=== PATIENT | female | born 1950 | race Caucasian/White ===

== ENCOUNTER → 2019-01-01 | Outpatient (REF) | payer MEDICARE, OTHER ==
[~2019-01-01] MED LIST: ALENDRONATE70 MG PO; CEPHALEXIN500 M1 PO; CHILD ASA81 MG PO; INSULIN PUMP; MOVE FREE JOINT1 TAB PO; SINGULAIR10 MG PO; TIMOLOL 0.5%5 ML OU
[2019-01-01 08:37] LABS: HEMOGLOBIN 9.1 g/dl (12.0-16.0); IMMATURE GRANULOCYTES 0.3 % (0.0-5.0); MEAN CELL VOLUME 93.5 fL CALC (80.0-100.0); MEAN CORPUSCULAR HGB 29.4 pG CALC (26.0-32.0); MEAN CORPUSCULAR HGB CONC 31.4 g/L CALC (32.0-36.0); NEUT# 3.8 thou/uL (2.00-7.15); RED BLOOD COUNT 3.1 mill/uL (4.20-5.60); RED CELL DISTRI WIDTH 12.8 % (11.5-15.5)
[2019-01-01 11:24] LABS: ALBUMIN 3.7 g/dL (3.2-5.0); BILIRUBIN, TOTAL 0.6 mg/dL (0.0-1.4); CHOLESTEROL HDL RATIO 2.5 (<4.4 (CALC)); CREATININE 1.1 mg/dL (0.5-1.0); POTASSIUM 4.7 mmol/l (3.5-5.1); TOTAL PROTEIN 6.5 g/dL (6.3-8.2)
[2019-01-01 11:59] LABS: TSH, 3RD GENERATION 2.35 uIU/mL (0.47 - 4.68)
== END | disposition home or self-care (01) ==
LOC: LAB 07:32
PROVIDERS: ATTEND Internal Medicine
DX: E10.641 Type 1 diabetes mellitus with hypoglycemia with coma (principal); M79.672 Pain in left foot; S92.322D Displaced fracture of second metatarsal bone, left foot, subsequent encounter for fracture with routine healing; S92.332D Displaced fracture of third metatarsal bone, left foot, subsequent encounter for fracture with routine healing

== ENCOUNTER → 2019-01-16 | Outpatient (REF) | payer MEDICARE, OTHER | END | disposition home or self-care (01) | LOC: DI 09:21 | PROVIDERS: ATTEND Podiatrist Foot & Ankle Surgery | DX: M14.671 Charcot's joint, right ankle and foot (principal); S92.322D Displaced fracture of second metatarsal bone, left foot, subsequent encounter for fracture with routine healing; S92.332D Displaced fracture of third metatarsal bone, left foot, subsequent encounter for fracture with routine healing; S92.342D Displaced fracture of fourth metatarsal bone, left foot, subsequent encounter for fracture with routine healing ==

== ENCOUNTER 2019-03-10 19:23 | Emergency (ER) | payer MEDICARE, OTHER ==
[~2019-03-10] VITALS: Ht 162.6 cm; Wt 61.4 kg
[2019-03-10 20:41] LABS: HEMATOCRIT 29.4 % (37.0-47.0); HEMOGLOBIN 9.3 g/dl (12.0-16.0); IMMATURE GRANULOCYTES 0.8 % (0.0-5.0); MEAN CELL VOLUME 90.2 fL CALC (80.0-100.0); MEAN CORPUSCULAR HGB 28.5 pG CALC (26.0-32.0); MEAN CORPUSCULAR HGB CONC 31.6 g/L CALC (32.0-36.0); NEUT# 8.57 thou/uL (2.00-7.15); RED BLOOD COUNT 3.26 mill/uL (4.20-5.60); RED CELL DISTRI WIDTH 14.1 % (11.5-15.5)
[2019-03-10] MEDS ORDERED: LISINOPRIL2.5 MG PO (20:44)
[2019-03-10] MEDS ORDERED: LEVOCETIRIZINE D5 MG PO (20:45)
[2019-03-10] MEDS ORDERED: HUMALOG100 MG/ML SC (20:47)
[2019-03-10 20:57] LABS: ALBUMIN 4.2 g/dL (3.2-5.0); BILIRUBIN, TOTAL 0.3 mg/dL (0.0-1.4); CREATININE 1.2 mg/dL (0.5-1.0); POTASSIUM 4.7 mmol/l (3.5-5.1)
[2019-03-10 22:45] VITALS: BP 146/68
== END 2019-03-10 22:45 | disposition home or self-care (01) ==
LOC: ED 19:23
DX: E11.649 Type 2 diabetes mellitus with hypoglycemia without coma (principal); E86.0 Dehydration; Z79.4 Long term (current) use of insulin; Z96.41 Presence of insulin pump (external) (internal)

== ENCOUNTER 2019-07-31 02:41 | Emergency (ER) | payer MEDICARE, OTHER ==
[~2019-07-31] VITALS: Ht 162.6 cm; Wt 63.6 kg
[~2019-07-31 02:41] MED LIST changes: +HUMALOG100 MG/ML SC; +LEVOCETIRIZINE D5 MG PO; +LISINOPRIL2.5 MG PO
[2019-07-31 03:30] LABS: HEMATOCRIT 30.5 % (37.0-47.0); HEMOGLOBIN 9.8 g/dl (12.0-16.0); IMMATURE GRANULOCYTES 0.4 % (0.0-5.0); MEAN CELL VOLUME 91.6 fL CALC (80.0-100.0); MEAN CORPUSCULAR HGB 29.4 pG CALC (26.0-32.0); MEAN CORPUSCULAR HGB CONC 32.1 g/L CALC (32.0-36.0); NEUT# 7.47 thou/uL (2.00-7.15); RED BLOOD COUNT 3.33 mill/uL (4.20-5.60); RED CELL DISTRI WIDTH 12.2 % (11.5-15.5)
[2019-07-31 03:40] LABS: ALBUMIN 4.2 g/dL (3.2-5.0); BILIRUBIN, TOTAL 0.4 mg/dL (0.0-1.4); CREATININE 1.4 mg/dL (0.5-1.0); POTASSIUM 4.5 mmol/l (3.5-5.1); TOTAL PROTEIN 7.6 g/dL (6.3-8.2)
[2019-07-31 05:30] VITALS: BP 150/69
== END 2019-07-31 05:41 | disposition home or self-care (01) ==
LOC: ED 02:41
PROVIDERS: Emergency Medicine
DX: E11.649 Type 2 diabetes mellitus with hypoglycemia without coma (principal); Z79.4 Long term (current) use of insulin

== ENCOUNTER 2020-02-11 | Emergency (ER) | payer MEDICARE, OTHER ==
[2020-02-11 16:07] LABS: HEMATOCRIT 29.3 % (37.0-47.0); HEMOGLOBIN 9.5 g/dl (12.0-16.0); IMMATURE GRANULOCYTES 0.2 % (0.0-5.0); MEAN CELL VOLUME 90.2 fL CALC (80.0-100.0); MEAN CORPUSCULAR HGB 29.2 pG CALC (26.0-32.0); MEAN CORPUSCULAR HGB CONC 32.4 g/dL CAL (32.0-36.0); NEUT# 6.27 thou/uL (2.00-7.15); RED BLOOD COUNT 3.25 mill/uL (4.20-5.60); RED CELL DISTRI WIDTH 12.5 % (11.5-15.5)
[2020-02-11 16:20] LABS: ALBUMIN 4.3 g/dL (3.2-5.0); ALKALINE PHOSPHATASE 75 u/l (38-126); BILIRUBIN, TOTAL 0.7 mg/dL (0.0-1.4); BUN 33 mg/dL (8-23); BUN/CREATININE RATIO 33 (12-20 (CALC)); CARBON DIOXIDE 26 mmol/l (22-30); CHLORIDE 97 mmol/l (95-108); GFR 55 ML/MIN (>=60 (CALC)); GFR FOR AFR.AMER. > 60 ML/MIN (>=60 (CALC)); POTASSIUM 4.8 mmol/l (3.5-5.1); TOTAL PROTEIN 7.4 g/dL (6.3-8.2)
[2020-02-11 16:24] LABS: ANION GAP 14 (6-22 (CALC)); SGOT/AST 93 u/l (9-36); SODIUM 132 mmol/l (137-146)
[2020-02-11 16:35] LABS: MYOGLOBIN 726 ng/mL (0 - 62)
[2020-02-11 16:45] LABS: INTERNATIONAL NORMALIZED RATIO 1.1 RATIO (0.7-1.3); PROTHROMBIN TIME 11.3 SECONDS (9.0-12.5)
== END 2020-02-11 16:39 | disposition short-term general hospital (02) ==
PROVIDERS: Emergency Medicine
DX: I21.9 Acute myocardial infarction, unspecified (principal); E11.9 Type 2 diabetes mellitus without complications; Z79.4 Long term (current) use of insulin

== ENCOUNTER 2020-02-24 15:53 | Inpatient (IN) | payer MEDICARE, OTHER ==
[~2020-02-24] VITALS: Ht 162.6 cm; Wt 76.1 kg
--- NOTE | 2020-02-24 16:20 | NUR ---
PT TO ROOM 282 VIA WHEELCHAIR. PT ASSISTED TO BED WITH MINIMAL ASSISTANCE. PT STATES THAT SHE HAS LIGHT SENSITIVITY. PT STATES SHE IS SHORT OF BREATH. O2 SAT 89 % ON ROOM AIR. RT NOTIFIED IMMEADIATELY FOR STAT ABG PER ADMIT ORDERS. RT UNABLE TO COMPLETE ABG AT THIS TIME. PLACED PT ON O2 2L PER ORDERS O2 SAT 94 -96%. 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 PT VERY SHORT OF BREATH WITH MINIMAL TO NO EXERTION. ADMISSION ASSESSMENT COMPLETED AT THIS TIME. #20 STARTED RAC. LAB SPECIMENS OBTAINED AND SENT TO LAB. ORIENTED TO ROOM AND UNIT. CALL LIGHT IN REACH. WILL CONTINUE TO MONITOR.
[2020-02-24 16:26] VITALS: BP 185/87
[2020-02-24 16:58] LABS: HEMATOCRIT 31.4 % (37.0-47.0); HEMOGLOBIN 9.8 g/dl (12.0-16.0); IMMATURE GRANULOCYTES 0.6 % (0.0-5.0); MEAN CELL VOLUME 94.6 fL CALC (80.0-100.0); MEAN CORPUSCULAR HGB 29.5 pG CALC (26.0-32.0); MEAN CORPUSCULAR HGB CONC 31.2 g/dL CAL (32.0-36.0); NEUT# 12.5 thou/uL (2.00-7.15); RED BLOOD COUNT 3.32 mill/uL (4.20-5.60); RED CELL DISTRI WIDTH 13.5 % (11.5-15.5)
--- NOTE | 2020-02-24 17:00 | NUR ---
DR SALGADO NOTIFIED OF INCREASED SHORTNESS OF BREATH AND DECREASED O2 SATS WITH VERY DIMINISHED LUNG SOUNDS. DR SALGADO ORDERED FOR PATIENT TO BE TRANSFERRED TO INTENSIVE CARE UNIT.
--- NOTE | 2020-02-24 17:10 | NUR ---
PHONED INTENSIVE CARE FOR BED ASSIGNEMENT. PATIENT ASSIGNED TO ICU BED 1.
--- NOTE | 2020-02-24 17:15 | NUR ---
RT MARTIN AT BED SIDE FOR ABG AND EKG AT THIS TIME.
[2020-02-24 17:17] LABS: ALBUMIN 3.6 g/dL (3.2-5.0); BILIRUBIN, TOTAL 0.8 mg/dL (0.0-1.4); CREATININE 1.3 mg/dL (0.5-1.0); MAGNESIUM 2.1 mg/dL (1.6-2.3); TOTAL PROTEIN 6.8 g/dL (6.3-8.2)
--- NOTE | 2020-02-24 17:25 | NUR ---
PT CALLED AND STATES THAT SHE IS DRY HEAVING AT THIS TIME.
[2020-02-24 17:28] LABS: POTASSIUM 5.4 mmol/l (3.5-5.1)
--- NOTE | 2020-02-24 17:39 | NUR ---
SPOKE DR SALGADO REFERENCE ELEVATED TROPONIN. WILL REPEAT. TROP IN [address] EATON
--- NOTE | 2020-02-24 17:51 | NUR ---
REPORT CALLED TO LIZA LILLY IN ICU
--- NOTE | 2020-02-24 18:00 | NUR ---
PT TRANSFERRED TO ICU BED VIA BED. PT TOLERATED TRANSFER WELL.
--- NOTE | 2020-02-24 18:05 | NUR ---
PT ARRIVED TO ICU1 BY BED IN STABLE CONDITION. DINNER TRAY BORUGHT WITH PT. NOT AVAILABLE TO TRANSFER TO ICU BOARD YET.
[2020-02-24 18:10] VITALS: BP 158/59
--- NOTE | 2020-02-24 18:45 | NUR ---
CALLED HOUSE SUP FOR ABX FROM OTHER UNIT.
--- NOTE | 2020-02-24 18:45 | NUR ---
REPORT FROM Suzie HILL RN. ASSUMED PT. CARE.
--- NOTE | 2020-02-24 19:30 | NUR ---
PT. FOUND RESTING IN BED IN NO DISTRESS. CHARLES IN PLACE, BUT NO URINE NOTED AT THIS TIME. PT. DID RECENTLY VOID 400 CC. RESPS EVEN AND UNLABORED. 2-3+ LOWER EXT EDEMA NOTED. LUNG SOUNDS DIMINISHED. BOWEL SOUNDS HYPOACTIVE. CALL LIGHT WITHIN REACH. ZOSYN INFUSED. LINE FLUSHED AND SALINE LOCKED. SKIN WARM AND DRY. PULSED INTACT BILAT. PT. WITH INTERMITTENT EPISODES OF CHANGING FROM SINUS RHYTHM IN THE 70-80 TO A-FIB IN THE 130-150'S. THESE DO NOT LAST MORE THAN A MINUTE.
[2020-02-24 19:53] VITALS: BP 130/61
[2020-02-24 19:54] LABS: URINE BILIRUBIN - DIPSTICK NEGATIVE (NEGATIVE); URINE BLOOD DIPSTICK TRACE-INTACT (NEGATIVE); URINE CLARITY CLEAR; URINE COLOR YELLOW; URINE GLUCOSE - DIPSTICK NEGATIVE (NEGATIVE); URINE KETONE NEGATIVE (NEGATIVE); URINE LEUK ESTERASE NEGATIVE (Negative); URINE NITRITE - DIPSTICK NEGATIVE (Negative); URINE PROTEIN - DIPSTICK NEGATIVE (NEG-TRACE); URINE SPECIFIC GRAVITY 1.015; URINE UROBILINOGEN - DIPSTICK 0.2 E.U./dL (0.2)
[2020-02-24 21:00] VITALS: BP 116/49
--- NOTE | 2020-02-24 21:00 | NUR ---
SPOUSE CALLED AND DAILY MED REC UPDATED. MD MADE AWARE OF UPDATED MED RECONCILLIATION AND NEW ORDERS RECEIVED. WILL MEDICATE ORDERED.
[2020-02-24 22:00] VITALS: BP 135/86; BP 149/72
--- NOTE | 2020-02-24 22:35 | NUR ---
[facility] MEDS PROVIDED. AFTER MEDICATING, RN ROBOTICS SOFTWARE ENGINEER LUZMA REPLACED CHARLES PRIOR CHARLES HAD NO OUTPUT DESPITE THE PATIENT HAVING LASIX. CHARLES REPLACED WITH RETURN OF 500 CC YELLOW URINE. PT. TOLERATED WELL.
[2020-02-25] VITALS (12 sets, daily range): BP systolic 92–140; BP diastolic 40–62
--- NOTE | 2020-02-25 00:20 | NUR ---
ZOSYN INFUSING. LEADS THAT WERE OFF WERE REPLACED. IV FLUIDS AT KVO. PT. DENIES COMPLAINTS OR NEEDS. WILL CONTINUE TO MONITOR.
--- NOTE | 2020-02-25 01:50 | NUR ---
PT. RESTING IN BED WITH EYES CLOSED IN NO DISTRESS. RESPS REMAIN EVEN AND UNLABORED. SKIN WARM AND DRY. IV FLUIDS INFUSING AT KVO. CALL LIGHT REMAINS WITHIN REACH. WILL CONTINUE TO CLOSELY MONITOR.
--- NOTE | 2020-02-25 03:45 | NUR ---
PT. RESTING IN BED WITH EYES CLOSED IN NO DISTRESS. RESPS REMAIN EVEN AND UNLABORED. SKIN IS WARM AND DRY. CHARLES PATENT. VOICES NO COMPLAINTS OR NEEDS.
--- NOTE | 2020-02-25 04:45 | NUR ---
LABS OBTAINED AT THIS TIME. PT. AFEBRILE. 97.8. IV FLUIDS REMAIN AT KVO. CALL LIGHT REMAINS WITHIN REACH. WILL CONTINUE TO CLOSELY MONITOR.
[2020-02-25 05:54] LABS: HEMOGLOBIN 8.2 g/dl (12.0-16.0); MEAN CELL VOLUME 95.2 fL CALC (80.0-100.0); MEAN CORPUSCULAR HGB CONC 31.5 g/dL CAL (32.0-36.0); RED BLOOD COUNT 2.73 mill/uL (4.20-5.60); RED CELL DISTRI WIDTH 13.6 % (11.5-15.5)
--- NOTE | 2020-02-25 05:54 | NUR ---
PT. REMAINS STABLE ON THE MONITOR. SINUS RHYTHM WITH OCCASIONAL PAC'S. MORE INFREQUENTLY THAN PRIOR PT. HAS INTERMITTENT EPISODES OF A-FIB. BUT RATE DOES NOT GO IN THE 140-150 PRIOR. RESPS EVEN AND UNLABORED. STATES HER SOB HAS IMPROVED. MEDICATED PER PHYSICIAN ORDER. ZOSYN INFUSING. VOICES NO COMPLAINTS OR NEEDS.
[2020-02-25 06:17] LABS: CREATININE 1.5 mg/dL (0.5-1.0); POTASSIUM 4.9 mmol/l (3.5-5.1)
--- NOTE | 2020-02-25 06:45 | NUR ---
RECEIVED REPORT FROM GURWINDER LILLY CARE ASSUMED AT THIS TIME. PT RESTING IN BED. VSS ON MONITOR. WILL CONTINUE TO MONITOR.
--- NOTE | 2020-02-25 08:00 | NUR ---
PT SITTING UP IN BED AT THIS TIME. PT IS ALERT AND ORIENTED X3. SHIFT ASSESSMENT COMPLETED AT THIS TIME. IV PATENT X1. INSULIN PUMP SENT DOWNSTAIRS TO BE PICKED UP BY . PT REPORTS FELLING BETTER THIS AM. SET UP FOR AM MEAL. CALL LIGHT IN REACH. WILL CONTINUE TO MONITOR.
--- NOTE | 2020-02-25 08:30 | NUR ---
SPOKE WITH CARTER HE WILL BE IN TO [facility] THE INSULIN PUMP
--- NOTE | 2020-02-25 10:00 | NUR ---
PT RESTING IN BED AWAKE AND WATCHING TV. RESP ARE EVEN AND UNLABORED. NO DISTRESS NOTED. CALL LIGHT IN REACH. WILL CONTINUE TO MONITOR.
[2020-02-25] MEDS ORDERED: METOPROL TAR25 MG PO (10:44)
[2020-02-25] MEDS ORDERED: AMIODARONE200 MG PO (10:45)
[2020-02-25] MEDS ORDERED: FUROSEMIDE20 MG PO (10:45)
[2020-02-25] MEDS ORDERED: MICRO-K10 MEQ PO (10:47)
[2020-02-25] MEDS ORDERED: OMEPRAZOLE DR20 MG PO (10:48)
[2020-02-25] MEDS ORDERED: AZELASTINE0.1 % (10:49)
[2020-02-25] MEDS ORDERED: PRAVASTATIN SOD20 MG PO (10:50)
[2020-02-25] MEDS ORDERED: BRIMONIDINE0.2 % OU (10:51)
--- NOTE | 2020-02-25 13:52 | NUR ---
PT TO RADIOLOGY VIA WHEELCHAIR FOR PROCEDURE IN STABLE CONDITION.
--- NOTE | 2020-02-25 14:16 | NUR ---
PT RETURNED FROM RADIOLOGY VIA WHEELCHAIR STABLE CONDITION.
--- NOTE | 2020-02-25 16:00 | NUR ---
PT SITTING UP IN BED WATCHING TV. RESP ARE EVEN AND UNLABORED. VSS ON MONITOR. CALL LIGHT IN REACH. WILL CONTINUE TO MONITOR.
--- NOTE | 2020-02-25 17:58 | NUR ---
PT SITTING UP IN BED WATCHING TV. RESP ARE EVEN AND UNLABORED. VSS ON MONITOR. CALL LIGHT IN REACH. WILL CONTINUE TO MONITOR.
--- NOTE | 2020-02-25 18:50 | NUR ---
REPORT FROM Filiberto ATWOOD RN. ASSUMED PT. CARE.
--- NOTE | 2020-02-25 20:05 | NUR ---
PT. FOUND RESTING IN BED WATCHING TELEVISION IN NO DISTRESS. STATES HER BREATHING HAS IMPROVED. LUNG SOUNDS REMAIN DIMINISHED, PT. WITH POOR INSPIRATORY EFFORT. SPO2/HR STABLE. BOWEL SOUNDS ACTIVE. REPORTS NO BM X 2 DAYS. WILL LET PHYSICIAN KNOW. LOWER EXT EDEMA IS IMPROVED. CALL LIGHT REMAINS WITHIN REACH.
--- NOTE | 2020-02-25 21:30 | NUR ---
PT. MEDICATED PER ORDERS. EYE DROPS ADMINISTERED ORDERED. PT. DENIES COMPLAINTS OR NEEDS AT THIS TIME. BP/HR STABLE. REMAINS SINUS IN THE 60-70'S.
--- NOTE | 2020-02-25 22:33 | NUR ---
PT. RESTING IN BED WITH EYES CLOSED IN NO DISTRESS. RESPS EVEN AND UNLABORED. VSS. CALL LIGHT REMAINS WITHIN REACH. WILL CONTINUE TO CLOSELY MONITOR.
[2020-02-26] VITALS (11 sets, daily range): BP systolic 94–131; BP diastolic 45–62
--- NOTE | 2020-02-26 00:15 | NUR ---
ZOSYN INFUSING ORDERED. NO REACTIONS NOTED. PT. REPORTS ANXIETY AND JITTERY. WILL PERFORM ACCUCHECK.
--- NOTE | 2020-02-26 00:30 | NUR ---
SCHUYLER NOW 436. CALLED AND MADE AWARE OF ELEVATED BLOOD SUGAR AND MILD ANXIETY. NEW ORDERS RECEIVED AT THIS TIME. ZOSYN INFUSED. NO REACTIONS NOTED. CALL LIGHT REMAINS WITHIN REACH. WILL CONTINUE TO MONITOR.
--- NOTE | 2020-02-26 00:30 | NUR ---
PT. REMAINS HYPOTENSIVE. MD MADE AWARE. CONTINUES ON INSULIN DRIP AT 4 UNITS/HR. NEW ORDERS RECEIVED FOR FLUID BOLUS. CALL LIGHT REMAINS WITHIN REACH. PT. INTERMITTENTLY WILL SIT UP AT THE SIDE OF THE BED, BUT IS DROWSY AND WOBBLY. ASSISTED BACK TO BED AND CONFERRED IMPORTANCE OF CONTINUING TO LAY DOWN AT THIS TIME DUE TO HIS BLOOD PRESSURE.
--- NOTE | 2020-02-26 02:10 | NUR ---
PT. RESTING IN BED WITH EYES CLOSED IN NO DISTRESS. IV FLUIDS CONTINUE AT KVO. VSS. CALL LIGHT REMAINS WITHIN REACH.
--- NOTE | 2020-02-26 05:00 | NUR ---
PT. REMAINS EASILY AROUSABLE TO LIGHT VERBAL STIMULI. VOICES NO COMPLAINTS OF NEEDS. IV FLUIDS REMAIN AT KVO. REMAINS AFEBRILE. MITCHELL. CALL LIGHT REMAINS WITHIN REACH.
[2020-02-26 05:23] LABS: HEMATOCRIT 24.7 % (37.0-47.0); HEMOGLOBIN 7.8 g/dl (12.0-16.0); IMMATURE GRANULOCYTES 0.4 % (0.0-5.0); MEAN CELL VOLUME 95.4 fL CALC (80.0-100.0); MEAN CORPUSCULAR HGB 30.1 pG CALC (26.0-32.0); MEAN CORPUSCULAR HGB CONC 31.6 g/dL CAL (32.0-36.0); NEUT# 6.73 thou/uL (2.00-7.15); RED BLOOD COUNT 2.59 mill/uL (4.20-5.60); RED CELL DISTRI WIDTH 13.7 % (11.5-15.5)
[2020-02-26 05:53] LABS: BILIRUBIN, TOTAL 0.7 mg/dL (0.0-1.4); CREATININE 1.9 mg/dL (0.5-1.0); POTASSIUM 4.4 mmol/l (3.5-5.1)
[2020-02-26 05:56] LABS: ALBUMIN 2.5 g/dL (3.2-5.0); TOTAL PROTEIN 4.9 g/dL (6.3-8.2)
--- NOTE | 2020-02-26 07:20 | NUR ---
PT RESTING IN BED AWAKE. PT IS ALERT AND ORIENTED X3. SHIFT ASSESSMENT COMPLETED AT THIS TIME. IV PATENT X1. CALL LIGHT IN REACH. WILL CONTINUE TO MONITOR.
--- NOTE | 2020-02-26 07:45 | NUR ---
PT SET UP FOR AM MEAL
--- NOTE | 2020-02-26 09:00 | NUR ---
DR SALGADO AT BEDSIDE AT THIS TIME
--- NOTE | 2020-02-26 09:59 | NUR ---
PT RESTING IN BED AWAKE AND WATCHING TV. RESP ARE EVEN AND UNLABORED. VSS ON MONITOR. CALL LIGHT IN REACH. WILL CONTINUE TO MONITOR.
--- NOTE | 2020-02-26 11:15 | NUR ---
PT TO RADIOLOGY VIA WHEELCHAIR ACCOMPANIED BY US TECH IN STABLE CONDITION.
--- NOTE | 2020-02-26 12:00 | NUR ---
PT RETURNED [facility] RADIOLOGY VIA WHEELCHAIR IN STABLE CONDITION. PT ASSISTED BACK TO BED AND SET UP FOR NOON MEAL. CALLLIGHT IN REACH. WILL CONTINUE TO MONITOR
--- NOTE | 2020-02-26 14:00 | NUR ---
PT RESTING IN BED WITH EYES CLOSED. RESP ARE EVEN AND UNLABORED. NO DISTRESS NOTED. CALL LIGHT IN REACH. WILL CONTINUE TO MONITOR.
--- NOTE | 2020-02-26 15:52 | NUR ---
RECIEVED REPORT FROM VIJAYA ESQUIVEL. ASSUMED PT CARE.
--- NOTE | 2020-02-26 17:50 | NUR ---
NOTIFIED DR. SALGADO ON PT BS, NEW ORDERS RECIEVED. FAXED TO [facility].
--- NOTE | 2020-02-26 18:00 | NUR ---
PT RESTING IN BED. DENIES CP, SOB OR DISTRESS AT THIS TIME. CALL LIGHT IN REACH. WILL MONITOR.
--- NOTE | 2020-02-26 18:45 | NUR ---
REPORT FROM Justo GASTELUM RN. ASSUMED PT. CARE.
--- NOTE | 2020-02-26 19:30 | NUR ---
PT. COVID SWAB NEGATIVE. PT. MOVED FROM ICU 1 TO ICU 6. DENIES COMPLAINTS OF PAIN OR NEED AT THIS TIME. SPO2 IS 94-95% ON R/A DURING THE MOVE. RESPS EVEN AND UNLABORED. AFEBRILE AT 97.3 LUNGS REMAINS DIMINISHED TO BASES BILATERALLY. CLEAR UPPERS, PT. REMAINS WITH POOR INSPIRATOR EFFORT. BOWEL SOUNDS ACTIVE. PT. WAS GIVEN MILK OF MAG EARLIER TODAY FOR NO BM X 3 DAYS. WILL CONTINUE TO MONITOR. EDEMA INCREASED FORM LAST NIGHT. 2+ EDEMA FROM TRACE YESTERDAY. DISTIL PULSES INTACT. CALL LIGHT WIHTIN REACH. WILL CONTINUE TO ASSESS.
--- NOTE | 2020-02-26 21:15 | NUR ---
PT. MEDICATED PER PHYSICIAN ORDERS. LIGHTS DIMMED FOR COMFORT. AMBIENT ROOM TEMPERATURE ADJUSTED. REMAINS STABLE ON THE MONITOR. CALL LIGHT WITHIN REACH. WILL CONTINUE TO CLOSELY MONITOR.
--- NOTE | 2020-02-26 21:34 | NUR ---
PT. MEDICATED PER PHSYICIAN ORDERS. CALL LIGHT REMAINS WITHIN REACH PROVIDE WITH SHEET AND FAN PER REQUEST. PT. JUST TOOK ANOTHER PRUNE JUICE AT THIS TIME. IV FLUIDS INFUSING AT 100 CC/HR ORDERED. SKIN COOL AND DRY. WILL CONTINUE TO CLOSELY MONITOR.
--- NOTE | 2020-02-26 22:45 | NUR ---
PT. RESTING IN BED WITH EYES CLOSED. RESPS REMAIN EVEN AND UNLABORED. VOICES NO COMPLAINTS OR NEEDS. VSS. CALL LIGHT WITHIN REACH.
[2020-02-27] VITALS (17 sets, daily range): BP systolic 96–160; BP diastolic 50–70
--- NOTE | 2020-02-27 00:25 | NUR ---
ZOSYN INFUSING AT THIS TIME. PT. REMAINS STABLE. CALL LIGHT WITHIN REACH. WILL CONTINUE TO CLOSELY MONITOR.
--- NOTE | 2020-02-27 00:55 | NUR ---
ZOSYN INFUSED. NO REACTIONS NOTED. PT REMAINS STABLE IN NO DISTRESS.
--- NOTE | 2020-02-27 02:18 | NUR ---
PT. ASSISTED TO AND FROM BEDSIDE COMMODE. PT. HAD MODERATE HARD FORMED GREEN STOOL AT THIS TIME.
[2020-02-27 04:54] LABS: HEMATOCRIT 25.3 % (37.0-47.0); HEMOGLOBIN 7.9 g/dl (12.0-16.0); MEAN CELL VOLUME 94.8 fL CALC (80.0-100.0); MEAN CORPUSCULAR HGB 29.6 pG CALC (26.0-32.0); MEAN CORPUSCULAR HGB CONC 31.2 g/dL CAL (32.0-36.0); RED BLOOD COUNT 2.67 mill/uL (4.20-5.60); RED CELL DISTRI WIDTH 13.7 % (11.5-15.5)
--- NOTE | 2020-02-27 05:00 | NUR ---
LABS OBTAINED AT THIS TIME. PT. PROVIDED WITH WARM BLANKET. DENIES COMPLAINTS OF PAIN OR OTHER NEED. CALL LIGHT REMAINS WITHIN REACH. WILL CONTINUE TO MONITOR.
[2020-02-27 05:13] LABS: CREATININE 1.6 mg/dL (0.5-1.0); MAGNESIUM 2.1 mg/dL (1.6-2.3); POTASSIUM 4.9 mmol/l (3.5-5.1)
--- NOTE | 2020-02-27 07:00 | NUR ---
REPORT RECEIVED, PT VSS. WILL CONTINUE TO MONITOR.
--- NOTE | 2020-02-27 08:00 | NUR ---
pT RESTING IN BED, ALL VSS AT THIS TIME. WILL CONTINUE TO MONITOR.
--- NOTE | 2020-02-27 10:00 | NUR ---
DR BURDEN AT BEDSIDE, LASIX ORDERED WELL PT EVAL REGARDING DISCHARGE. VSS AT THIS TIME
--- NOTE | 2020-02-27 12:00 | NUR ---
PT UP TO BEDSIDE CAMMODE, BM. ALL VSS STABLE AT THIS TIME.
--- NOTE | 2020-02-27 14:00 | NUR ---
PT RESTING IN BED, ALL VSS AT THIS TIME.
--- NOTE | 2020-02-27 16:00 | NUR ---
PT CALLED REGARDING PT CONDITION, UPDATED AND TOOK PRTABLE PHONE TO PT . ALL VSS STABLE AT THIS TIME.
--- NOTE | 2020-02-27 18:00 | NUR ---
PT EATING DINNER IN BED, ALL VSS STABLE AT THIS TIME.
--- NOTE | 2020-02-27 18:55 | NUR ---
REPORT FROM VIJAYA CORDON. ASSUMED PT. CARE.
--- NOTE | 2020-02-27 19:25 | NUR ---
PT. FOUND RESTING IN BED IN NO DISTRESS. SHE REPORTS HER WORK OF BREATHING HAS IMPROVED MUCH TODAY. RESPS EVEN, UNLABORED. PT. WITH IMPROVED AERATION UPON INSPIRATION. SOME CRACKLES TO BASES BILATERALLY, 2+ EDEMA TO LLE AND 1+ TO RLE. DISTIL PULSES INTACT. BOWEL SOUNDS ACTIVE THROUGHOUT. IV FLUIDS INFUSING AT KVO ORDERED. CALL LIGHT WITHIN REACH. DENIES COMPLAINTS OR NEEDS AT THIS TIME. WILL CONTINUE TO CLOSELY MONITOR.
--- NOTE | 2020-02-27 20:15 | NUR ---
PT. ASSISTED TO BSC FOR BM.
--- NOTE | 2020-02-27 20:30 | NUR ---
PT. ASSISTED BACK TO BED. LARGE LOOSE GREEN BM AT THIS TIME. PT. ASSISTED WITH CLEANSING.
--- NOTE | 2020-02-27 22:20 | NUR ---
PT. RESTING IN BED. REPOSITIONED TO LT. SIDE AT THIS TIME SHE IS HAVING SOME DISCOMFORT TO HER COCCYX REGION. NO REDNESS OR SKIN ISSUES NOTED. WILL ASSIST TO TURN AND REPOSITION FOR COMFORT.
[2020-02-28] VITALS (14 sets, daily range): BP systolic 94–202; BP diastolic 43–118
--- NOTE | 2020-02-28 00:15 | NUR ---
PT. REMAINS AFEBRILE. RESTING WITH EYES CLOSED IN NO DISTRESS. RESPS REMAIN EVEN AND UNLABORED. BP/HR STABLE. REMAINS SINUS JIMBO. CALL LIGHT REMAINS WITHIN REACH.
--- NOTE | 2020-02-28 02:10 | NUR ---
IF FLUIDS CONTINUE TO INFUSE AT KVO. PT. REMAINS RESTING WELL ON LT. SIDE IN NO DISTRESS. VOICES NO COMPLAINTS OR NEEDS.
--- NOTE | 2020-02-28 04:05 | NUR ---
PT. REMAINS AFEBRILE. IV FLUIDS CONTINUE AT KVO. SKIN REMAINS WARM AND DRY. CALL LIGHT WITHIN REACH.
--- NOTE | 2020-02-28 05:20 | NUR ---
IV SITE CHANGED OUT AT THIS TIME AND LABS DRAWN FROM IV SITE. CALL LIGHT REMAINS WITHIN REACH. PT. RELATES TO THIS RN THAT SHE HAS SLEPT QUITE WELL LAST NIGHT AND IS FEELING MUCH BETTER. REMAINS SINUS-SINUS JIMBO ON THE MONITOR. REPOSITIONED TO RT. SIDE AT THIS TIME FOR COMFORT. WILL CONTINUE TO MONITOR.
[2020-02-28 05:32] LABS: HEMATOCRIT 26.6 % (37.0-47.0); HEMOGLOBIN 8.3 g/dl (12.0-16.0); MEAN CELL VOLUME 97.4 fL CALC (80.0-100.0); MEAN CORPUSCULAR HGB 30.4 pG CALC (26.0-32.0); MEAN CORPUSCULAR HGB CONC 31.2 g/dL CAL (32.0-36.0); RED BLOOD COUNT 2.73 mill/uL (4.20-5.60); RED CELL DISTRI WIDTH 14.1 % (11.5-15.5)
--- NOTE | 2020-02-28 07:00 | NUR ---
REPORT RECEIVED FROM OUTGOING NURSE, PT RESTING IN BED AND ALL VSS AT THIS TIME. BLOOD GLUCOSE AT 330, 12 UNITS OF INSULIN GIVEN.
[2020-02-28 07:05] LABS: CREATININE 1.6 mg/dL (0.5-1.0); MAGNESIUM 1.9 mg/dL (1.6-2.3); POTASSIUM 4.2 mmol/l (3.5-5.1)
--- NOTE | 2020-02-28 08:00 | NUR ---
PT RESTING IN BED AT THIS TIME, ASSESSED ALL SYSTEMS, ALERT AND ORIENTEDX3, NSR ON MONITOR, BP SLIGHTLY ELEVATED, BILAT LE EDEMA OF +1+2, RESPIRATIONS SHALLOW- ON 2LT OF O2. DYSPNEA UPON EXERTION, INSENTIVE SPIROMETER EDUCATION REINFORCED AND PHYSICAL THERAPY TO EVALUATE PATIENT ACTIVITY TOLERANCE. WILL CONTINUE TO MONITOR.
[2020-02-28 08:41] LABS: ALBUMIN 2.3 g/dL (3.2-5.0)
--- NOTE | 2020-02-28 08:50 | NUR ---
PT TO XRAY FOR A 2VIEW PER MD ORDER. TRANSPORTED BY VIJAYA FENTON VIA WHEELCHAIRWITH O2. VSS ON MONITOR PRIOR TO TRANSPORT.
--- NOTE | 2020-02-28 10:00 | NUR ---
PT RESTING IN BED WITH EYES CLOSED AT THIS TIME, ALL VSS. WILL CONTINUE TO MONITOR.
--- NOTE | 2020-02-28 11:00 | NUR ---
PT IN TO SEE PT.
--- NOTE | 2020-02-28 11:57 | NUR ---
PT note Patient is seen for gait training and cardiac monitoring. She shows progression with her ability to move in bed. RBP 132/62 WBP 128/68 HR between 66-78 She had a blunted response to ambulation x 30 feet and was limited by dyspnea. She required a FWW She is a good candidate for rehab as her balance is poor as well and she is a high fall risk. Her Am Pac score is unchanged from eval
--- NOTE | 2020-02-28 12:00 | NUR ---
PT EATING LUNCH AT BEDSIDE, ALL VSS. DENIES PAIN AT THIS TIME, WILL CONTINUE TO MONITOR.
--- NOTE | 2020-02-28 14:00 | NUR ---
PT RESTING IN BED, ALERT AND ORIENTED, DENIES PAIN OR DISCOMFORT AT THIS TIME. WILL CONTINUE TO MONITOR.
--- NOTE | 2020-02-28 16:00 | NUR ---
PT RESTING IN BED WITH EYES CLOSED, ALL VSS AT THIS TIME.
--- NOTE | 2020-02-28 16:55 | NUR ---
REPORT CALLED TO [facility].
--- NOTE | 2020-02-28 17:45 | NUR ---
PT TRANSPORTED TO MED SURG VIA BED BY RN.
--- NOTE | 2020-02-28 18:17 | NUR ---
PT ARRIVED TO UNIT VIA BED WITH ICU STAFF; ALERT AND ORIENTED. DENIES PAIN. RESPIRATIONS EVEN AND UNLABORED ON OXYGEN 2L VIA NC. ORIENTED TO ROOM AND CALL LIGHT SYSTEM. SAFETY MEASURES IN PLACE. CALL LIGHT WITHIN REACH.
--- NOTE | 2020-02-28 19:10 | NUR ---
REPORT FROM AARON LILLY. PT SITTING UP IN BED. NO APPARENT DISTRESS NOTED. IV SITE APPEARS HEALTHY. LUMBER INSPECTOR APPLIED TO PT AT THIS TIME. CHARLES PATENT DRAINING TO GRAVITY. O2 @2L/M VIA NC. EXTRA PILLOWS PROVIDED TO PT FOR COMFORT AND REPOSITIONING. MIDLINE INCISION SCABBED OVER, CDI. DISCUSSED POC. PT VERBALIZED UNDERSTANDING. PT DENIES ANY OTHER WANTS OR NEEDS. CALL LIGHT WITHIN REACH. WILL CONTINUE TO MONITOR.
--- NOTE | 2020-02-28 23:34 | NUR ---
PT MEDICATED FOR ANXIETY UPON REQUEST, PT STATES " I NEED SOMETHING TO CALM MY NERVES AND HELP ME SLEEP". PT DENIES ANY OTHER WANTS OR NEEDS. CALL LIGHT WITHIN REACH. WILL CONTINUE TO MONITOR.
--- NOTE | 2020-02-29 03:26 | NUR ---
PT RESTING IN BED WITH EYES CLOSED. NO APPARENT DISTRESS NOTED. CALL LIGHT WITHIN REACH. WILL CONTINUE TO MONITOR.
[2020-02-29 04:50] VITALS: BP 134/59
[2020-02-29 05:19] LABS: HEMATOCRIT 26.3 % (37.0-47.0); HEMOGLOBIN 8.1 g/dl (12.0-16.0); MEAN CELL VOLUME 96.3 fL CALC (80.0-100.0); MEAN CORPUSCULAR HGB 29.7 pG CALC (26.0-32.0); MEAN CORPUSCULAR HGB CONC 30.8 g/dL CAL (32.0-36.0); RED BLOOD COUNT 2.73 mill/uL (4.20-5.60); RED CELL DISTRI WIDTH 13.5 % (11.5-15.5)
[2020-02-29 05:24] LABS: ALBUMIN 2.6 g/dL (3.2-5.0); CREATININE 1.5 mg/dL (0.5-1.0); POTASSIUM 4.2 mmol/l (3.5-5.1); TOTAL PROTEIN 5.1 g/dL (6.3-8.2)
[2020-02-29 05:47] LABS: BILIRUBIN, TOTAL 0.4 mg/dL (0.0-1.4)
[2020-02-29 07:44] VITALS: BP 130/64
--- NOTE | 2020-02-29 07:44 | NUR ---
PT RESTING IN BED, NO SIGNS OF DISTRESS NOTED, RESP EVEN AND UNLABORED, ALERT AND ORIENTED X3, DISCUSSED POC, DRESSINGS TO BACK FROM THORACENTESIS CDI X2, ASSESSMENT COMPLETED, CALL LIGHT IN REACH,CONTINUE TO MONITOR.
--- NOTE | 2020-02-29 12:00 | NUR ---
PT RESTING IN BED USING INCENTIVE SPIROMETER, NO SIGNS OF DISTRESS NOTED, RESP EVEN AND UNLABORED. CALL LIGHT IN REACH,CONTINUE TO MONITOR.
--- NOTE | 2020-02-29 15:58 | NUR ---
PT RESTING IN BED, NO SIGNS OF DISTRESS NOTED, PT VOICES NO NEEDS OR COMPLAINTS AT THIS TIME, CALL LIGHT IN REACH,CONTINUE TO MONITOR.
[2020-02-29 15:59] VITALS: BP 138/65
[2020-02-29 18:40] VITALS: BP 141/62
--- NOTE | 2020-02-29 19:05 | NUR ---
REPORT FROM RAJEDNRA CEDENO. PT SITTING UP IN BED. NO APPARENT DISTRESS NOTED. IV SITE APPEARS HEALTHY. STRIP CATCHER IN PLACE. CHARLES PATENT DRAINING TO GRAVITY. O2 @2L/M VIA NC. DISCUSSED POC. PT VERBALIZED UNDERSTANDING. PT DENIES ANY OTHER WANTS OR NEEDS. CALL LIGHT WITHIN REACH. WILL CONTINUE TO MONITOR.
--- NOTE | 2020-02-29 23:33 | NUR ---
PT REQUESTING XANAX AT THIS TIME TO HELP WITH SLEEP. PT RESTING IN BED WITH EYES CLOSED UPON ENTERING ROOM, NO S/S OF ANXIETY NOTED. ENCOURAGED PT TO TRY RELAXATION TECHNIQUES. TURNED LIGHTS OFF IN ROOM. DISCUSSED MEDICATION INDICATIONS, PT VERBALIZED UNDERSTANDING. CALL LIGHT WITHIN REACH. WILL CONTINUE TO MONITOR.
[2020-03-01] VITALS (7 sets, daily range): BP systolic 106–140; BP diastolic 55–90
--- NOTE | 2020-03-01 03:59 | NUR ---
PT RESTING IN BED WITH EYES CLOSED. NO APPARENT DISTRESS NOTED. CALL LIGHT WITHIN REACH. WILL CONTINUE TO MONITOR.
[2020-03-01 05:51] LABS: HEMATOCRIT 26.8 % (37.0-47.0); HEMOGLOBIN 8.2 g/dl (12.0-16.0); IMMATURE GRANULOCYTES 0.3 % (0.0-5.0); MEAN CELL VOLUME 96.1 fL CALC (80.0-100.0); MEAN CORPUSCULAR HGB 29.4 pG CALC (26.0-32.0); MEAN CORPUSCULAR HGB CONC 30.6 g/dL CAL (32.0-36.0); RED BLOOD COUNT 2.79 mill/uL (4.20-5.60); RED CELL DISTRI WIDTH 13.5 % (11.5-15.5)
[2020-03-01 06:13] LABS: ALBUMIN 2.5 g/dL (3.2-5.0); BILIRUBIN, TOTAL 0.3 mg/dL (0.0-1.4); CREATININE 1.7 mg/dL (0.5-1.0); POTASSIUM 4.2 mmol/l (3.5-5.1)
--- NOTE | 2020-03-01 07:32 | NUR ---
PT RESTING IN BED, NO SIGNS OF DISTRESS NOTED, RESP EVEN AND UNLABORED. 02 2L NC, DISCUSSED POC, PT VOICES NO NEEDS OR COMPLAINTS, ALERT AND ORIENTED X3, ASSESSMENT COMPLETED, CHARLES DRAINING TO GRAVITY, CALL LIGHT IN REACH,CONTINUE TO MONITOR.
--- NOTE | 2020-03-01 11:20 | NUR ---
PT RESTING IN BED, ZOSYN INFUSION INITIATED. PT VOICES NO NEEDS OR COMPLAINTS AT THIS TIME. CALL LIGHT IN REACH,CONTINUE TO MONITOR.
--- NOTE | 2020-03-01 13:32 | NUR ---
HEPARIN GIVEN, PT VOICES NO NEEDS OR COMPLAINTS AT THIS TIME. CALL LIGHT IN REACH,CONTINUE TO MONITOR.
--- NOTE | 2020-03-01 17:27 | NUR ---
PT SITTING ON SIDE OF BED EATING DINNER, PT MEDICATED PER MAR, MOM GIVEN UPON REQUEST. CALL LIGHT IN REACH,CONTINUE TO MONITOR.
--- NOTE | 2020-03-01 19:15 | NUR ---
REPORT FROM RAJENDRA CEDENO. PT SITTING UP IN BED. NO APPARENT DISTRESS NOTED. IV SITE APPEARS HEALTHY. PAINTER PLATE IN PLACE. CHARLES PATENT DRAINING TO GRAVITY. O2 @2L/M VIA NC. DISCUSSED POC. PT VERBALIZED UNDERSTANDING. PT DENIES ANY OTHER WANTS OR NEEDS. CALL LIGHT WITHIN REACH. WILL CONTINUE TO MONITOR.
--- NOTE | 2020-03-01 23:23 | NUR ---
PT RESTING IN BED WITH EYES CLOSED. NO APPARENT DISTRESS NOTED. CALL LIGHT WITHIN REACH. WILL CONTINUE TO MONITOR.
[2020-03-02] VITALS (8 sets, daily range): BP systolic 105–138; BP diastolic 35–61
--- NOTE | 2020-03-02 03:45 | NUR ---
PT RESTING IN BED WITH EYES CLOSED. NO APPARENT DISTRESS NOTED. CALL LIGHT WITHIN REACH. WILL CONTINUE TO MONITOR.
[2020-03-02 04:58] LABS: HEMATOCRIT 25.8 % (37.0-47.0); HEMOGLOBIN 8.1 g/dl (12.0-16.0); IMMATURE GRANULOCYTES 0.6 % (0.0-5.0); MEAN CELL VOLUME 95.9 fL CALC (80.0-100.0); MEAN CORPUSCULAR HGB 30.1 pG CALC (26.0-32.0); MEAN CORPUSCULAR HGB CONC 31.4 g/dL CAL (32.0-36.0); NEUT# 4.28 thou/uL (2.00-7.15); RED BLOOD COUNT 2.69 mill/uL (4.20-5.60); RED CELL DISTRI WIDTH 13.8 % (11.5-15.5)
[2020-03-02 05:18] LABS: ALBUMIN 2.6 g/dL (3.2-5.0); BILIRUBIN, TOTAL 0.4 mg/dL (0.0-1.4); CREATININE 1.5 mg/dL (0.5-1.0); POTASSIUM 4.2 mmol/l (3.5-5.1)
--- NOTE | 2020-03-02 07:25 | NUR ---
CHANGE OF SHIFT REPORT RECEIVED FROM WILIAN BREWER. PT IS ABLE TO MAKE HER NEEDS KNOWN. PT DENIES PAIN OR DISCOMFORT AT THIS TIME
--- NOTE | 2020-03-02 12:00 | NUR ---
PT SITTING UP IN CHAIR. PT IS ABLE TO MAKE HER NEEDS KNOWN. PT EDUCATED ON USING INCENTIVE SPIROMETER FOR LUNG EXPANSION. PT VERBALIZED UNDERSTANDING. PENCIL MAKER WILL CONTINUE TO MONITOR
--- NOTE | 2020-03-02 13:40 | NUR ---
PT note Ms Betancourt is seen for gait training and endurance exercises. She presents in her bedside chair with a greatly improved affect despite her rececnt Chest X ray. She is able to stand with min assist of 1 and able to ambulate in the room 50 feet with vitals stable and min assist of 1 limited by dyspnea. She tells me that her has the advice of several family friends who are healthcare workers and that advice has been NOT to attend SNF. She could manage at home (although this is not ideal). She is encouraged to stand at least 6 x daily. We discussed and demonstrarted the dyspnea scale and how this is to be used as her primary means of self monitoring. She is able to demonstrate ambulation at a slow pace greatly improved from the previous treatment this past Monday. She has an Am Pac score of 16 and should do well with home health. She is seen today for gait training and patient education on continued home exercises
--- NOTE | 2020-03-02 15:54 | NUR ---
PT NOTIFIED THAT ULTRA SOUND MIGDALIA BE AROUND NOON ON 03/03/20. PT VERBALIZED UNDERSTANDING. TERRITORY DEVELOPMENT MANAGER ASSISTED PT TO AMBULATE AROUND ROOM. PT IS ABLE TO TOLERATE SHORT DISTANCE ABOUT 60 FEET. TERRITORY DEVELOPMENT MANAGER WILL CONTINUE TO MONITOR.
--- NOTE | 2020-03-02 19:27 | NUR ---
PT SITTING IN RECLINER WATCHING TV. A&O X3. NO DISTRESS NOTED. O2 VIA NC @2L IN PLACE. CHARLES CATHETER IN PLACE DRAINING VIA GRAVITY WITH CLEAR YELLOW URINE NOTED. PT DEMONSTRATED PROPER USE OF IS DEVICE X10 WITH GOAL SET AT 1500. PT INSTRUCTED TO USE DEVICE EVERY HOUR WHILE AWAKE. PT VERBALIZED UNDERSTANDING. EDEMA NOTED TO THE BLE. NO OTHER NEEDS AT THIS TIME. ASSESSMENT COMPLETED. CALL LIGHT IN REACH. CONTINUE TO MONITOR.
--- NOTE | 2020-03-02 23:08 | NUR ---
PT SLEEPING IN BED. NO DISTRESS NOTED. CONTINUE TO MONITOR.
[2020-03-03 03:55] VITALS: BP 126/57
[2020-03-03 05:07] LABS: HEMATOCRIT 27.9 % (37.0-47.0); HEMOGLOBIN 8.6 g/dl (12.0-16.0); IMMATURE GRANULOCYTES 0.4 % (0.0-5.0); MEAN CELL VOLUME 96.5 fL CALC (80.0-100.0); MEAN CORPUSCULAR HGB 29.8 pG CALC (26.0-32.0); MEAN CORPUSCULAR HGB CONC 30.8 g/dL CAL (32.0-36.0); NEUT# 4.27 thou/uL (2.00-7.15); RED BLOOD COUNT 2.89 mill/uL (4.20-5.60); RED CELL DISTRI WIDTH 13.9 % (11.5-15.5)
[2020-03-03 05:29] LABS: CREATININE 2.1 mg/dL (0.5-1.0); POTASSIUM 4.4 mmol/l (3.5-5.1)
--- NOTE | 2020-03-03 07:15 | NUR ---
CHANGE OF SHIFT REPORT RECEIVED FROM VIJAYA BERNABE. PT IS ABLE TO MAKE NEEDS KNOWN. PT DENIES PAIN OR DISCOMFORT. AIRCRAFT RESTORER WILL CONTINUE TO MONITOR
[2020-03-03 07:37] VITALS: BP 134/58
[2020-03-03 11:00] VITALS: BP 114/51
--- NOTE | 2020-03-03 12:46 | NUR ---
AREN IN CT CALLED TO VERIFY TIME FOR U/S. PT IS ON THE LIST TODAY PER AREN. PT NOTIFIED. PT DENIES PAIN OR DISCOMFORT. SOLE LEATHER CUTTING MACHINE OPERATOR WILL CONTINUE TOMONITOR.
--- NOTE | 2020-03-03 12:50 | NUR ---
DR EATON HERE TO SEE PT. AFTER VISIT WITH DR EATON, PT TRANSPORTED TO RADIOLOGY FOR US/ECHO.
--- NOTE | 2020-03-03 14:00 | NUR ---
PT BACK FROM [facility]
[2020-03-03 15:26] VITALS: BP 114/54
--- NOTE | 2020-03-03 15:36 | NUR ---
PT note resting BP 115/54 Patient was able to ambualte about 140 feet with vitals stable with BP 125/55 and HR 70 following amb. She had o2 sats at 97% on RA She is preogressing nicely. She has a Charcot foot on the left and has decreased stride length and poor balance due to peripheral neuropathy. She would do well with home health PT for follow up if she is to go home,
--- NOTE | 2020-03-03 16:19 | NUR ---
DR EATON NOTIFIED VIA BETH,ANIMAL CARE SUPERVISOR THAT XRAY ALREADY DONE PER XRAY DEPT
--- NOTE | 2020-03-03 17:47 | NUR ---
PT STABLE DENIES ANY PAIN OR DISCOMFORT. O2 SATURATION BETWEN 94% TO 96% ON ROOM AIR. PT CONTINUES TO USE INCENTIVE SPIROMETER PER INSTRUCTIONS
[2020-03-03 18:54] VITALS: BP 118/57
--- NOTE | 2020-03-03 19:00 | NUR ---
REPORT RECEIVED FROM Hipolito QUEVEDO RN, CARE OF PT ASSUMED AT THIS TIME.
--- NOTE | 2020-03-03 19:30 | NUR ---
PHYSICAL ASSESMENT COMPLETE. VS TAKEN BY JASON @ 0204 ASSESED. PLAN OF CARE REVIEWED W/ PT. VERBALIZES UNDERSTANDING AND DENIES QUESTIONS. PT SITTING UP IN RECLINER. PT DENIES NEEDS @ THIS TIME. CALL LINDQUIST WITHIN REACH, AGREES TO CALL PRN. ITEMS WITHIN REACH. BED LOCKED IN LOW POSITION W/ BEDRAILS UP X2.
--- NOTE | 2020-03-03 20:15 | NUR ---
TELEMETRY READINGS PROVIDED BY ED TIMBER TRIMMER FOR 1999
--- NOTE | 2020-03-03 21:30 | NUR ---
PT AMBULATED IN HALLWAY W/ FWW AND STANDBY ASSIST FROM INSPECTOR METAL CAN FROM ROOM 273 TO END OF MARTINS AND BACK. PT TOLERATED WALKED W/O SOB AND MAINTAINED SATS 98% ON ROOM AIR.
[2020-03-03 23:43] VITALS: BP 116/63
--- NOTE | 2020-03-04 00:41 | NUR ---
PT SLEEPING, APPEARS COMFORTABLE AND IN NO DISTRESS. RESPIRATIONS REGULAR AND UNLABORED. VS TAKEN BY JASON @ 2343 ASSESED. 0000 TELEMETRY READING FROM ED LIGHTING DIRECTOR ASSESED. CALL LINDQUIST REMAINS WITHIN REACH, ITEMS REMAIN WITHIN REACH. BED REMAINS LOCKED IN LOW POSITION W/ BEDRAILS UP X2.
[2020-03-04 04:03] VITALS: BP 135/71
--- NOTE | 2020-03-04 04:10 | NUR ---
PT SLEEPING, APPEARS COMFORTABLE AND IN NO DISTRESS. RESPIRATIONS REGULAR AND UNLABORED. VS TAKEN BY JASON @ 0403 ASSESED. 0400 TELEMETRY READING FROM ED BULLION WEIGHER ASSESED. CALL LINDQUIST REMAINS WITHIN REACH, ITEMS REMAIN WITHIN REACH. BED REMAINS LOCKED IN LOW POSITION W/ BEDRAILS UP X2.
--- NOTE | 2020-03-04 05:38 | NUR ---
PT ASSISTED OOB TO CHAIR. URINE IN CHARLES IS NOTED TO BE SHRUTHI RED COLOR, CLEAR WITH ORTIZ RUST COLORED SEDIMENT NOTED IN TUBING. PT IS S/P VENOFER INFUSION, CONSIDER VENOFER INFUSION V.S HEMATURIA. WILL ENDORSE TO ONCOMING NURSE IN AM AND RECOMMNED ENDORSING TO PT'S PROVIDER.
[2020-03-04 06:01] LABS: ALBUMIN 2.7 g/dL (3.2-5.0); BUN 34 mg/dL (8-23); CARBON DIOXIDE 32 mmol/l (22-30); CHLORIDE 100 mmol/l (95-108); CREATININE 1.9 mg/dL (0.5-1.0); GFR 26 ML/MIN (>=60 (CALC)); GFR FOR AFR.AMER. 32 ML/MIN (>=60 (CALC)); SODIUM 136 mmol/l (137-146)
--- NOTE | 2020-03-04 08:00 | NUR ---
RECIEVED REPORT FROM VIJAYA GUALLPA. PT SITTING IN RECLINER WITH FEET ELEVATED, WATCHING TV. INTRODUCED SELF TO PT. VITALS OBTAIN. A/O. BREATH SOUNDS CLEAR AND DIMINISHED. HEART SOUNDS REGULAR. EYES SENSITVE TO LIGHT. ACTIVE BOWEL SOUNDS IN ALL 4 QUANDRANTS. IV SITE PATENT. WEAK RADIAL AND PEDAL PULSES. EDEMA IN LOWER EXTREMIETIES. LANRE HOSE ON. GLUCOSE 310. 10 UNITS OF NOVOLOG GIVEN. PT DENIES ANY PAIN OR DISCOMFORTS AT THIS TIME. WILL CONTINUE TO MONITOR
[2020-03-04 08:10] VITALS: BP 138/58
--- NOTE | 2020-03-04 08:21 | NUR ---
PT TRANSPORTED TO RADIOLOGY IN STABLE CONDITION VIA WHEELCHAIR ACCOMPANIED BY WILIAN CHANDLER.
--- NOTE | 2020-03-04 08:40 | NUR ---
PT RETURNED TO MED/SURG ROOM 273 IN STABLE CONDITION VIA WHEELCHAIR ACCOMPANIED BY VIJAYA BANUELOS.
[2020-03-04 09:00] VITALS: BP 136/58
--- NOTE | 2020-03-04 09:10 | NUR ---
PT BACK FROM RADIOLOGY. PT SITTING IN CHAIR WITH FEET ELVATED. VITALS OBTAINED. BP136/58. HR 64. TEMPERATURE 96.0. 98% O2. SCHEDULED MEDS GIVEN. PT DENIES ANY PAIN OR DISCOMFORTS. WILL CONTINUE TO MONITOR.
[2020-03-04 09:16] VITALS: BP 136/58
[2020-03-04] MEDS ORDERED: XARELTO2.5 MG PO (09:16)
[2020-03-04] MEDS ORDERED: DOXYCYCL HYC100 MG PO (09:16)
--- NOTE | 2020-03-04 10:15 | NUR ---
CHARLES CATHATER REMOVED. PT TOLERATED WELL. WAITING FOR PT URINATE AFTER REMOVAL. ALL SAFTETY PERCAUTIONS IN PLACE. WILL CONTINUE TO MONITOR.
--- NOTE | 2020-03-04 12:00 | NUR ---
PT RESTING IN RECLINER EATING LUNCH. ZOSYN RUNNING. PT DENIES ANY PAIN OR DISCOMFORTS AT THIS TIME. WILL CONTINUE TO MONITOR.
--- NOTE | 2020-03-04 13:00 | NUR ---
AT BEDSIDE DISCUSSING POC.
--- NOTE | 2020-03-04 13:30 | NUR ---
PT EDUCATED ON DISCHARGE INSTRUCTIONS AND NEW MEDS. PT VERABALIZED UNDERSTANDING. IV REMOVED WITH CATHATER STILL INTACT. PT TOLERATED WELL. PT WAITING ON FOR TRANSPORTATION. PT DENIES ANY PAIN OR DISCOMFORTS. WILL CONTINUE TO MONITOR.
--- NOTE | 2020-03-04 14:49 | NUR ---
Discharge instructions given. Patient verbalizes understanding of same. Discharged in stable condition via Wheelchair to Home with spouse. All belongings sent with pt. PT LEFT VIA WHEELCHAIR IN STABLE CONDITION ACCOMPAINED BY Justo JACKMAN LPN.
== END 2020-03-04 14:49 | disposition home health service (06) | DRG 280 ==
LOC: ICU 15:53 → MS2 15:53 → ICU 18:05 → MS2 02-28 15:20
PROVIDERS: Internal Medicine Nephrology; Nurse Practitioner Family; ADMIT Internal Medicine; ATTEND Internal Medicine
PROC: 0T9B70Z Drainage of Bladder with Drainage Device, Via Natural or Artificial Opening (ICD-10-PCS; 2020-02-24)
PROC: 0W9B3ZZ Drainage of Left Pleural Cavity, Percutaneous Approach (ICD-10-PCS; principal; 2020-02-25)
PROC: 0W993ZZ Drainage of Right Pleural Cavity, Percutaneous Approach (ICD-10-PCS; 2020-02-26)
PROC: 0W9B3ZZ Drainage of Left Pleural Cavity, Percutaneous Approach (ICD-10-PCS; 2020-03-03)
DX: I97.130 Postprocedural heart failure following cardiac surgery (principal); J96.01 Acute respiratory failure with hypoxia; I21.09 ST elevation (STEMI) myocardial infarction involving other coronary artery of anterior wall; I50.23 Acute on chronic systolic (congestive) heart failure; J18.9 Pneumonia, unspecified organism; I13.0 Hypertensive heart and chronic kidney disease with heart failure and stage 1 through stage 4 chronic kidney disease, or unspecified chronic kidney disease; J91.8 Pleural effusion in other conditions classified elsewhere; N17.9 Acute kidney failure, unspecified; I25.10 Atherosclerotic heart disease of native coronary artery without angina pectoris; E10.22 Type 1 diabetes mellitus with diabetic chronic kidney disease; N18.3 Chronic kidney disease, stage 3 (moderate); I48.0 Paroxysmal atrial fibrillation; D50.9 Iron deficiency anemia, unspecified; D63.1 Anemia in chronic kidney disease; M06.9 Rheumatoid arthritis, unspecified; I25.5 Ischemic cardiomyopathy; C50.919 Malignant neoplasm of unspecified site of unspecified female breast; E78.5 Hyperlipidemia, unspecified; Y83.2 Surgical operation with anastomosis, bypass or graft as the cause of abnormal reaction of the patient, or of later complication, without mention of misadventure at the time of the procedure; Z20.828 Contact with and (suspected) exposure to other viral communicable diseases; Z95.1 Presence of aortocoronary bypass graft; Z79.4 Long term (current) use of insulin; Z96.41 Presence of insulin pump (external) (internal); Z82.49 Family history of ischemic heart disease and other diseases of the circulatory system; Z90.13 Acquired absence of bilateral breasts and nipples; Z79.810 Long term (current) use of selective estrogen receptor modulators (SERMs)
CPT/HCPCS: J1756; Q5106 EC

== ENCOUNTER 2021-03-05 | Emergency (ER) | payer MEDICARE, OTHER ==
[~2021-03-05] MED LIST changes: +AMIODARONE200 MG PO; +AZELASTINE0.1 %; +BRIMONIDINE0.2 % OU; +DOXYCYCL HYC100 MG PO; +EYE DROP OU; +FUROSEMIDE20 MG PO; +KEFLEX500 MG PO; +METOPROL TAR25 MG PO; +MICRO-K10 MEQ PO; +OMEPRAZOLE DR20 MG PO; +PRAVASTATIN SOD20 MG PO; +XARELTO2.5 MG PO
[2021-03-05 13:22] LABS: HEMATOCRIT 27.9 % (37.0-47.0); HEMOGLOBIN 8.7 g/dl (12.0-16.0); IMMATURE GRANULOCYTES 1.3 % (0.0-5.0); MEAN CELL VOLUME 94.3 fL CALC (80.0-100.0); MEAN CORPUSCULAR HGB 29.4 pG CALC (26.0-32.0); MEAN CORPUSCULAR HGB CONC 31.2 g/dL CAL (32.0-36.0); NEUT# 6.81 thou/uL (2.00-7.15); RED BLOOD COUNT 2.96 mill/uL (4.20-5.60); RED CELL DISTRI WIDTH 12.6 % (11.5-15.5)
[2021-03-05 13:32] LABS: ACT PARTIAL THROMBO TIME 23.5 SECONDS (20.0-32.5); INTERNATIONAL NORMALIZED RATIO 1.1 RATIO (0.7-1.3); PROTHROMBIN TIME 10.9 SECONDS (9.0-12.5)
[2021-03-05 13:33] LABS: ALBUMIN 3.7 g/dL (3.2-5.0); BILIRUBIN, TOTAL 0.7 mg/dL (0.0-1.4); CREATININE 1.2 mg/dL (0.5-1.0); POTASSIUM 4.3 mmol/l (3.5-5.1); TOTAL PROTEIN 6.9 g/dL (6.3-8.2)
[2021-03-05 15:13] LABS: URINE BILIRUBIN - DIPSTICK NEGATIVE (NEGATIVE); URINE BLOOD DIPSTICK TRACE-INTACT (NEGATIVE); URINE COLOR YELLOW; URINE GLUCOSE - DIPSTICK 500 mg/dL (NEGATIVE); URINE KETONE NEGATIVE (NEGATIVE); URINE LEUK ESTERASE NEGATIVE (NEGATIVE); URINE PROTEIN - DIPSTICK 100 mg/dL (NEG-TRACE); URINE UROBILINOGEN - DIPSTICK 0.2 E.U./dL (0.2)
[2021-03-05 15:15] LABS: URINE NITRITE - DIPSTICK NEGATIVE (Negative)
[2021-03-05 15:22] LABS: URINE SQUAMOUS EPITHELIAL CELL RARE EPI/hpf (0-FEW)
== END 2021-03-05 17:34 | disposition home or self-care (01) ==
DX: R50.83 Postvaccination fever (principal); R52 Pain, unspecified; T50.B95A Adverse effect of other viral vaccines, initial encounter; E11.9 Type 2 diabetes mellitus without complications; I25.10 Atherosclerotic heart disease of native coronary artery without angina pectoris; Z79.4 Long term (current) use of insulin

== ENCOUNTER 2021-06-09 21:40 | Emergency (ER) | payer MEDICARE, OTHER ==
[~2021-06-09] VITALS: Ht 162.6 cm; Wt 60.0 kg
[2021-06-09 22:18] LABS: HEMATOCRIT 30.7 % (37.0-47.0); HEMOGLOBIN 9.9 g/dl (12.0-16.0); IMMATURE GRANULOCYTES 0.6 % (0.0-5.0); MEAN CORPUSCULAR HGB 30.7 pG CALC (26.0-32.0); MEAN CORPUSCULAR HGB CONC 32.2 g/dL CAL (32.0-36.0); NEUT# 7.09 thou/uL (2.00-7.15); RED BLOOD COUNT 3.23 mill/uL (4.20-5.60); RED CELL DISTRI WIDTH 12.5 % (11.5-15.5)
[2021-06-09 22:23] LABS: URINE BLOOD DIPSTICK LARGE (NEGATIVE); URINE COLOR YELLOW; URINE GLUCOSE - DIPSTICK >=1000 mg/dL (NEGATIVE); URINE KETONE 15 mg/dL (NEGATIVE); URINE LEUK ESTERASE NEGATIVE (NEGATIVE); URINE PROTEIN - DIPSTICK 100 mg/dL (NEG-TRACE); URINE UROBILINOGEN - DIPSTICK 0.2 E.U./dL (0.2)
[2021-06-09 22:28] LABS: URINE BILIRUBIN - DIPSTICK NEGATIVE (NEGATIVE); URINE NITRITE - DIPSTICK NEGATIVE (Negative)
[2021-06-09 22:30] LABS: URINE SQUAMOUS EPITHELIAL CELL FEW EPI/hpf (0-FEW)
[2021-06-09 22:32] LABS: ALBUMIN 3.6 g/dL (3.2-5.0); BILIRUBIN, TOTAL 0.5 mg/dL (0.0-1.4); CREATININE 1.3 mg/dL (0.5-1.0); POTASSIUM 4.5 mmol/l (3.5-5.1); TOTAL PROTEIN 6.8 g/dL (6.3-8.2)
[2021-06-09] MEDS ORDERED: BACTRIM DS1 TAB PO (23:05)
[2021-06-09 23:10] VITALS: BP 152/65
== END 2021-06-09 23:20 | disposition home or self-care (01) ==
LOC: ED 21:40
PROVIDERS: Family Medicine
DX: T80.29XA Infection following other infusion, transfusion and therapeutic injection, initial encounter (principal); L03.311 Cellulitis of abdominal wall; E11.65 Type 2 diabetes mellitus with hyperglycemia; I25.10 Atherosclerotic heart disease of native coronary artery without angina pectoris; D63.8 Anemia in other chronic diseases classified elsewhere; E87.1 Hypo-osmolality and hyponatremia; Y84.8 Other medical procedures as the cause of abnormal reaction of the patient, or of later complication, without mention of misadventure at the time of the procedure; Z96.41 Presence of insulin pump (external) (internal); Z79.4 Long term (current) use of insulin; Z98.890 Other specified postprocedural states; Z20.822 Contact with and (suspected) exposure to COVID-19

== ENCOUNTER 2021-06-12 15:56 | Emergency (ER) | payer MEDICARE, OTHER ==
[~2021-06-12] VITALS: Ht 162.6 cm; Wt 65.0 kg
[~2021-06-12 15:56] MED LIST changes: +BACTRIM DS1 TAB PO
[2021-06-12 17:05] VITALS: BP 180/81
== END 2021-06-12 17:05 | disposition left against medical advice (07) ==
LOC: ED 15:56
DX: L03.011 Cellulitis of right finger (principal); M06.9 Rheumatoid arthritis, unspecified; E11.9 Type 2 diabetes mellitus without complications; Z79.4 Long term (current) use of insulin; Z96.41 Presence of insulin pump (external) (internal); Z91.19 Patient's noncompliance with other medical treatment and regimen

== ENCOUNTER 2022-03-17 18:17 | Emergency (ER) | payer MEDICARE, OTHER ==
[~2022-03-17] VITALS: Ht 162.6 cm; Wt 56.8 kg
[2022-03-17 18:30] VITALS: BP 186/71
[2022-03-17] MEDS ORDERED: XARELTO10 MG PO (18:37)
[2022-03-17 19:00] VITALS: BP 181/76
[2022-03-17] MEDS ORDERED: HYDROCO/APAP1 TA9 PO (19:45)
[2022-03-17 20:01] VITALS: BP 166/76
== END 2022-03-17 20:20 | disposition home or self-care (01) ==
LOC: ED 18:17
DX: S52.502A Unspecified fracture of the lower end of left radius, initial encounter for closed fracture (principal); E11.9 Type 2 diabetes mellitus without complications; W01.0XXA Fall on same level from slipping, tripping and stumbling without subsequent striking against object, initial encounter; Y92.009 Unspecified place in unspecified non-institutional (private) residence as the place of occurrence of the external cause; Z95.1 Presence of aortocoronary bypass graft